=== PATIENT | female | born 1965 | race Caucasian/White ===

== ENCOUNTER → 2017-12-07 | Outpatient (CLI) | payer OTHER ==
--- NOTE | 2017-12-07 13:53 | US ---
EXAMINATION TYPE: US abdomen complete DATE OF EXAM: 12/07/2017 COMPARISON: Complete abdominal ultrasound December 04, 2014. CT abdomen and pelvis November 08, 2011 CLINICAL HISTORY: R10.9 ABD PAIN. chronic pancreatitis and liver inflammation per patient, on steroid s EXAM MEASUREMENTS: Liver Length: 15.4 cm Gallbladder Wall: Surgically absent CBD: 0.7 cm Spleen: 9.3 cm Right Kidney: 10.0 x 5.0 x 3.9 cm Left Kidney: 10.1 x 4.4 x 5.2 cm Pancreas: wnl Liver: wnl Gallbladder: Surgically absent Evidence for sonographic Griffith's sign: no CBD: wnl Spleen: wnl Right Kidney: wnl Left Kidney: wnl Upper IVC: wnl Abd Aorta: wnl The visualized liver is homogenous. The intrahepatic portion of the IVC and proximal abdominal aorta are within normal limits. Gallbladder is surgically absent. Common bile duct is unremarkable. The visualized portions of the pancreas are homogenous. The spleen is unremarkable. Kidneys are symmetr ic and free of hydronephrosis. No renal lesions are seen. IMPRESSION: No suspicious finding identified. No significant change from prior ultrasound.
== END | disposition home or self-care (01) ==
LOC: RADUSWWP 13:13
PROVIDERS: ATTEND Family Medicine
DX: R10.9 Unspecified abdominal pain (principal); F41.9 Anxiety disorder, unspecified
CPT/HCPCS: 76700

== ENCOUNTER → 2019-03-13 | Outpatient (CLI) | payer OTHER ==
[2019-03-13 17:58] LABS: Basophils # (A) 0.1 k/uL (0-0.2); Basophils % (A) 1 %; Eosinophils # (A) 0.3 k/uL (0-0.7); Eosinophils % (A) 4 %; HCT 42.7 % (34.0-46.0); HGB 13.5 gm/dL (11.4-16.0); Lymphocytes # (A) 2.2 k/uL (1.0-4.8); Lymphocytes % (A) 29 %; MCH 29.8 pg (25.0-35.0); MCHC 31.6 g/dL (31.0-37.0); MCV 94.4 fL (80.0-100.0); Mean Platelet Volume 7.1; Monocytes # (A) 0.6 k/uL (0-1.0); Monocytes % (A) 8 %; Neutrophils # (A) 4.3 k/uL (1.3-7.7); Neutrophils % (A) 57 %; Platelet Count 345 k/uL (150-450); RBC 4.53 m/uL (3.80-5.40); RDW 14.8 % (11.5-15.5); WBC 7.5 k/uL (3.8-10.6)
[2019-03-13 18:01] LABS: INR 1.1 (<1.2); Prothrombin Time 11.2 sec (9.0-12.0)
[2019-03-13 23:38] LABS: African American GFR (CKD) 85.8 (60.0-200.0); Albumin 4.2 g/dL (3.80-4.90); Albumin/Globulin Ratio 2.1 (1.60-3.17); BUN/Creat Ratio 17.78 Ratio (12.00-20.00); Calcium 9.5 mg/dL (8.7-10.3); Potassium 4.7 mmol/L (3.5-5.5); Total Bilirubin 0.4 mg/dL (0.3-1.2); Total Protein 6.2 g/dL (6.2-8.2)
[2019-03-14 14:18] LABS: IgG Subclass 3 21.7 mg/dL (11.0-85.0); IgG Subclass 4 26.3 mg/dL (3.0-175.0)
[2019-03-14 14:24] LABS: Liver/Kidney Microsome Antibod 1.4 UNITS (<=20)
== END | disposition home or self-care (01) ==
LOC: LABWHC1 17:27
PROVIDERS: ATTEND Internal Medicine
DX: K75.4 Autoimmune hepatitis (principal); K85.80 Other acute pancreatitis without necrosis or infection
CPT/HCPCS: 36415; 80053; 82787; 83516; 85025; 85610; 86038; 86376

== ENCOUNTER 2020-01-16 16:31 | Inpatient (IN) | payer OTHER ==
[2020-01-16] MEDS ORDERED: MORPHINE SULFATE 4 MG/ML SYRINGE IV STA (16:50)
[2020-01-16] MEDS ORDERED: ASPIRIN 81 MG PO STA (16:50)
[2020-01-16] MEDS ORDERED: SODIUM CHLORIDE 0.9% 1,000 ML IV STA (16:50)
[2020-01-16] MEDS ORDERED: ONDANSETRON 4 MG/2 ML VIAL IVP STA (17:05)
[2020-01-16 17:23] LABS: Basophils % (A) 0 %; Eosinophils # (A) 0.3 k/uL (0-0.7); Eosinophils % (A) 2 %; HCT 45.1 % (34.0-46.0); HGB 14.5 gm/dL (11.4-16.0); Lymphocytes # (A) 0.9 k/uL (1.0-4.8); Lymphocytes % (A) 4 %; MCH 30.2 pg (25.0-35.0); MCHC 32.2 g/dL (31.0-37.0); MCV 93.8 fL (80.0-100.0); Mean Platelet Volume 7.6; Monocytes # (A) 0.5 k/uL (0-1.0); Monocytes % (A) 3 %; Neutrophils # (A) 19.7 k/uL (1.3-7.7); Neutrophils % (A) 91 %; Platelet Count 351 k/uL (150-450); RDW 13.3 % (11.5-15.5); WBC 21.6 k/uL (3.8-10.6)
--- NOTE | 2020-01-16 17:27 | ED ---
General Adult HPI - General Chief complaint: Nausea/Vomiting/Diarrhea Stated complaint: vomiting, weak Time Seen by Provider: 01/16/20 16:40 Source: patient, RN notes reviewed, old records reviewed Mode of arrival: ambulatory Limitations: no limitations - History of Present Illness Initial comments: 54-year-old female patient with extensive past medical history including COPD, reported prior IL, cholecystectomy hysterectomy chronic abdominal pain presents to ED for evaluation of abdominal pain which is diffuse and has been ongoing for the last week. She reports also been having nausea and vomiting. Patient does also report 2 days of left parasternal chest pain. Denies any shortness of breath. Denies chest pain at this time. Systemic: Pt denies fatigue, fever/chills, rash. Pt denies weakness, night sweats, weight loss. Neuro: Pt denies headache, visual disturbances, syncope or pre-syncope. HEENT: Pt denies ocular discharge or irritation, otalgia, rhinorrhea, pharyngitis or notable lymphadenopathy. Cardiopulmonary: Pt denies SOB, heart palpitations, dyspnea on exertion. : Pt denies dysuria, burning w/ urination, frequency/urgency. Denies new onset urinary or bowel incontinence. MSK: Pt denies myalgia, loss of strength or function in extremities. Neuro: Pt denies new onset weakness, paresthesias. - Related Data Home Medications Medication Instructions Recorded Confirmed Aspirin [Adult Low Dose Aspirin EC] 81 mg PO DAILY 08/24/15 04/12/18 Celecoxib [CeleBREX] 200 mg PO BID 08/24/15 04/12/18 Esomeprazole Magnesium [NexIUM] 40 mg PO BID 08/24/15 04/12/18 Lipase/Protease/Amylase [Pancreaze 42,000 unit PO QID 08/24/15 04/12/18 ] Loratadine [Claritin] 10 mg PO DAILY 08/24/15 04/12/18 Ranitidine HCl [Zantac] 150 mg PO HS 08/24/15 04/12/18 Metoclopramide HCl [Reglan] 5 mg PO QID PRN 04/12/18 04/12/18 guaiFENesin 400 mg PO DAILY 04/12/18 04/12/18 predniSONE 5 mg PO DAILY 04/12/18 04/12/18 Allergies Allergy/AdvReac Type Severity Reaction Status Date / Time formaldehyde Allergy Rash/Hives Verified 01/16/20 16:39 latex Allergy Rash/Hives Verified 01/16/20 16:39 nickel Allergy Rash/Hives Verified 01/16/20 16:39 Penicillins Allergy Rash/Hives Verified 01/16/20 16:39 povidone-iodine Allergy Rash/Hives Verified 01/16/20 16:39 [From Betadine] soap [From Betadine] Allergy Rash/Hives Verified 01/16/20 16:39 Sulfa (Sulfonamide Allergy Anaphylaxis Verified 01/16/20 16:39 Antibiotics) Review of Systems ROS Statement: Those systems with pertinent positive or pertinent negative responses have been documented in the HPI. ROS Other: All systems not noted in ROS Statement are negative. Past Medical History Past Medical History: Asthma, COPD, Deep Vein Thrombosis (DVT), GERD/Reflux, GI Bleed, Memory Impairment, Myocardial Infarction ([place]), Osteoarthritis (OA), Rheumatoid Arthritis (RA) Additional Past Medical History / Comment(s): lupus,scleroderma, hypoglycemia,ulcers,chronic autoimmune hepatitis and pancreatits(ON PANCREATIC DIET AT HOME),delayed gastric emptying,diverticulitis,hiatal hernia, abd hernia,factor 12 deficiency,raynauls dz, pt stated "has had 8 mi's", endometreosis,"irreg heat beat", ddd, scoliosis. Last Myocardial Infarction Date:: UNK History of Any Multi-Drug Resistant Organisms: None Reported Past Surgical History: Cholecystectomy, Hysterectomy, Orthopedic Surgery Additional Past Surgical History / Comment(s): 2 rt arthroscopic sx to clean knee up, total rt knee replacement, plate in neck, lt knee arthroscopy and cleaned out, nose sx(rhinoplasty), laparoscopy- adhesions/scar tissue removed Past Anesthesia/Blood Transfusion Reactions: No Reported Reaction Additional Past Anesthesia/Blood Transfusion Reaction / Comment(s): PT THINKS SHE MAY HAVE HAD A BLOOD TRANSFUSION IN PAST Past Psychological History: No Psychological Hx Reported Smoking Status: Never smoker Past Alcohol Use History: None Reported Past Drug Use History: Marijuana - Past Family History Mother Additional Family Medical History / Comment(s): HEART PROBLEMS Father Family Medical History: Coronary Artery Disease (CAD), Diabetes Mellitus, Renal Disease Additional Family Medical History / Comment(s): LUPUS, HEART PROBLEMS General Exam - General Exam Comments Initial Comments: Constitutional: NAD, AOX3, Pt has pleasant affect. HEENT: NC/AT, trachea midline, neck supple, no lymphadenopathy. Posterior pharynx non erythematous, without exudates. External ears appear normal, without discharge. Mucous membranes moist. Eyes PERRLA, EOM intact. There is no scleral icterus. No pallor noted. Cardiopulmonary: RRR, no murmurs, rubs or gallops, no JVD noted. Lungs CTAB in anterior and posterior merritt. No peripheral edema. Abdominal exam: Abdomen soft and non-distended. Generalized tenderness to palpa tion in abdomen. No hepatosplenomegaly. No ecchymosis Neuro: CN II-XII grossly intact. No nuchal rigidity. No raccon eyes, no greer sign, no hemotympanum. No cervical spinal tenderness. MSK: No posterior calf tenderness bilaterally, homans sign negative bilaterally. Posterior tibialis and radial pulse +2 bilaterally. Sensation intact in upper and lower extremities. Full active ROM in upper and lower extremities, 5/5 stregnth. Limitations: no limitations Course Vital Signs 01/16/20 01/16/20 01/16/20 16:35 17:19 19:32 Temperature 98.2 F 98.8 F Pulse Rate 57 L 50 L 63 Respiratory 18 18 18 Rate Blood Pressure 162/76 148/78 117/68 O2 Sat by Pulse 98 99 99 Oximetry Medical Decision Making - Medical Decision Making 54-year-old female patient with extensive past medical history including COPD, reported prior [place], cholecystectomy hysterectomy chronic abdominal pain presents to ED for evaluation of abdominal pain which is diffuse and has been ongoing for the last week. She reports also been having nausea and vomiting. Patient does also report 2 days of left parasternal chest pain. Denies any shortness of breath. Denies chest pain at this time. Patient will signs are stable, afebrile. Physical exam didn't display generalized abdominal tenderness, nonlocalized. Laboratory investigations were obtained leukocytosis of 21.6. D- dimer negative. Troponin negative. CT abdomen and pelvis was obtained. This did not display any suspicious acute changes. Patient tenderness is mainly in the upper quadrants. Chest x-ray did not reveal any acute cardiopulmonary process. Patient's symptoms are well controlled. She'll be admitted for serial troponins and further evaluation. Case discussed with Dr. Joyce. - Lab Data Result diagrams: 01/16/20 17:14 01/16/20 17:14 Lab Results 01/16/20 01/16/20 01/16/20 Range/Units 17:14 17:14 17:14 WBC 21.6 H (3.8-10.6) k/uL RBC 4.80 (3.80-5.40) m/uL Hgb 14.5 (11.4-16.0) gm/dL Hct 45.1 (34.0-46.0) % MCV 93.8 (80.0-100.0) fL MCH 30.2 (25.0-35.0) pg MCHC 32.2 (31.0-37.0) g/dL RDW 13.3 (11.5-15.5) % Plt Count 351 (150-450) k/uL Neutrophils % 91 % Lymphocytes % 4 % Monocytes % 3 % Eosinophils % 2 % Basophils % 0 % Neutrophils # 19.7 H (1.3-7.7) k/uL Lymphocytes # 0.9 L (1.0-4.8) k/uL Monocytes # 0.5 (0-1.0) k/uL Eosinophils # 0.3 (0-0.7) k/uL Basophils # 0.0 (0-0.2) k/uL PT 10.7 (9.0-12.0) sec INR 1.0 (<1.2) APTT 25.1 (22.0-30.0) sec D-Dimer 0.30 (<0.60) mg/L FEU Sodium 139 (137-145) mmol/L Potassium 5.3 H (3.5-5.1) mmol/L Chloride 108 H (98-107) mmol/L Carbon Dioxide 21 L (22-30) mmol/L Anion Gap 10 mmol/L BUN 17 (7-17) mg/dL Creatinine 0.55 (0.52-1.04) mg/dL Est GFR (CKD-EPI)AfAm >90 (>60 ml/min/1.73 sqM) Est GFR (CKD-EPI)NonAf >90 (>60 ml/min/1.73 sqM) Glucose 149 H (74-99) mg/dL Calcium 9.7 (8.4-10.2) mg/dL Magnesium 1.4 L (1.6-2.3) mg/dL Total Bilirubin 0.8 (0.2-1.3) mg/dL AST 51 H (14-36) U/L ALT 42 H (4-34) U/L Alkaline Phosphatase 71 (38-126) U/L Troponin I (0.000-0.034) ng/mL Total Protein 7.6 (6.3-8.2) g/dL Albumin 4.6 (3.5-5.0) g/dL 01/16/20 Range/Units 17:14 WBC (3.8-10.6) k/uL RBC (3.80-5.40) m/uL Hgb (11.4-16.0) gm/dL Hct (34.0-46.0) % MCV (80.0-100.0) fL MCH (25.0-35.0) pg MCHC (31.0-37.0) g/dL RDW (11.5-15.5) % Plt Count (150-450) k/uL Neutrophils % % Lymphocytes % % Monocytes % % Eosinophils % % Basophils % % Neutrophils # (1.3-7.7) k/uL Lymphocytes # (1.0-4.8) k/uL Monocytes # (0-1.0) k/uL Eosinophils # (0-0.7) k/uL Basophils # (0-0.2) k/uL PT (9.0-12.0) sec INR (<1.2) APTT (22.0-30.0) sec D-Dimer (<0.60) mg/L FEU Sodium (137-145) mmol/L Potassium (3.5-5.1) mmol/L Chloride (98-107) mmol/L Carbon Dioxide (22-30) mmol/L Anion Gap mmol/L BUN (7-17) mg/dL Creatinine (0.52-1.04) mg/dL Est GFR (CKD-EPI)AfAm (>60 ml/min/1.73 sqM) Est GFR (CKD-EPI)NonAf (>60 ml/min/1.73 sqM) Glucose (74-99) mg/dL Calcium (8.4-10.2) mg/dL Magnesium (1.6-2.3) mg/dL Total Bilirubin (0.2-1.3) mg/dL AST (14-36) U/L ALT (4-34) U/L Alkaline Phosphatase (38-126) U/L Troponin I <0.012 (0.000-0.034) ng/mL Total Protein (6.3-8.2) g/dL Albumin (3.5-5.0) g/dL - EKG Data -: EKG Interpreted by Me (and Dr. Joyce ) EKG Comments: Ventricular rate 48, when necessary for 136, QRS 90, QT/QTc 476/425. Sinus bradycardia, otherwise normal EKG. No concern for acute ischemia. Disposition Clinical Impression: Abdominal pain, Chest pain Disposition: ADMITTED IP TO THIS HOSP Condition: Serious Is patient prescribed a controlled substance at d/c from ED?: No Referrals: Chaim Johnson DO [Primary Care Provider] - 1-2 days
[2020-01-16 17:32] LABS: ALT 42 U/L (4-34); AST 51 U/L (14-36); African American GFR (CKD) >90 (>60 ml/min/1.73 sqM); Albumin 4.6 g/dL (3.5-5.0); Alkaline Phosphatase 71 U/L (38-126); Anion Gap 10 mmol/L; Blood Urea Nitrogen 17 mg/dL (7-17); Calcium 9.7 mg/dL (8.4-10.2); Carbon Dioxide 21 mmol/L (22-30); Chloride 108 mmol/L (98-107); Glucose 149 mg/dL (74-99); Magnesium 1.4 mg/dL (1.6-2.3); Non-African American GFR(CKD) >90 (>60 ml/min/1.73 sqM); Potassium 5.3 mmol/L (3.5-5.1); Sodium 139 mmol/L (137-145); Total Bilirubin 0.8 mg/dL (0.2-1.3); Total Protein 7.6 g/dL (6.3-8.2)
[2020-01-16 17:49] LABS: D-Dimer 0.3 mg/L FEU (<0.60); Partial Thromboplastin Time 25.1 sec (22.0-30.0); Prothrombin Time 10.7 sec (9.0-12.0)
[2020-01-16] MEDS ORDERED: methylPREDNISolone SOD SUCCI 125 MG/2 ML VIAL IV STA (17:59)
[2020-01-16] MEDS ORDERED: FAMOTIDINE 20 MG/2 ML VIAL IV STA (17:59)
[2020-01-16] MEDS ORDERED: diphenhydrAMINE 50 MG/ML 1 ML VIAL IVP STA (17:59)
--- NOTE | 2020-01-16 18:09 | XR ---
EXAMINATION TYPE: XR chest 2V DATE OF EXAM: 01/16/2020 COMPARISON: 11/08/2011 INDICATION: Chest pain TECHNIQUE: Frontal and lateral views of the chest are obtained. FINDINGS: The heart size is normal. The pulmonary vasculature is normal. The lungs are clear. IMPRESSION: 1. No acute pulmonary process.
[2020-01-16] MEDS: HYDROmorphone 1 MG/ML 1 ML SYRINGE IVP STA ×2 (18:17→18:32)
[2020-01-16] MEDS ORDERED: HYDROmorphone 1 MG/ML 1 ML SYRINGE IVP STA (18:27)
--- NOTE | 2020-01-16 19:18 | CT ---
EXAMINATION TYPE: CT abdomen pelvis w con DATE OF EXAM: 01/16/2020 COMPARISON: 04/12/2018 INDICATION: Generalized pain with weakness and bowel changes DLP: 648.3 mGycm, Automated exposure control for dose reduction was used. CONTRAST: 100 mL of Isovue 300. Study performed without Oral Contrast TECHNIQUE: Axial images were obtained from above the diaphragm to the pubic rami in the axial plane a t 5 mm thick sections. Reconstructed images are reviewed on the computer in the coronal plane. FINDINGS: Limited CT sections are obtained the lung bases. The lung bases are clear. CT ABDOMEN: Liver: Normal Spleen: Normal Pancreas: Normal Adrenal glands: The adrenal glands are normal. Gallbladder: Surgically absent Kidneys: No masses are evident. No hydronephrosis is present. No cysts are present. Delayed images were obtained through the kidneys, which remain unremarkable. Aorta: Vascular calcification is within the aorta. Inferior vena cava: Normal. CT PELVIS: Loops of bowel within the abdomen and pelvis are normal. Study is without oral contrast limiting bowel evaluation. Appendix: Normal as visualized. There is some fluid-filled loops of ileum in the right lower quadrant which may separation from the appendix difficult. Clinical management of any suspected appendicitis will be recommended. Correlate with the patient's surgical history. Urinary bladder: Normal. Genitourinary structures: Uterus and ovaries are not identified. No free fluid is within the pelvis. Osseous structures: No suspicious lytic or sclerotic lesions. IMPRESSIONS: 1. No suspicious acute changes identified. 2. Difficulty identifying the appendix. Clinical management of any suspected appendicitis will be req uired.
[2020-01-16 20:10] LABS: Appearance,Urine Clear (Clear); Bilirubin,Urine Negative (Negative); Blood,Urine Negative (Negative); Color,Urine Yellow; Glucose,Urine (UA) Negative (Negative); Ketones,Urine 3+ (Negative); Leukocyte Esterase,Urine Negative (Negative); Nitrite,Urine Negative (Negative); Protein,Urine Trace (Negative); Urobilinogen,Urine <2.0 mg/dL (<2.0)
[2020-01-16] MEDS ORDERED: NITROGLYCERIN SL TABS 0.4 MG TAB SUBLINGUAL PRN (20:15)
[2020-01-16] MEDS ORDERED: MAGNESIUM SULFATE-D5W PMX 1 GM in DEXTROSE/WATER 1 100ML.BAG IVPB ONE ×3 (20:29→20:56)
[2020-01-16 20:31] LABS: Specific Gravity,Urine >1.050 (1.001-1.035)
[2020-01-16] MEDS ORDERED: MAGNESIUM OXIDE 400 MG TAB PO STA (20:34)
[2020-01-16] MEDS: MORPHINE SULFATE 4 MG/ML SYRINGE IV PRN (22:06)
[2020-01-16] MEDS ORDERED: TAPENTADOL HCL 100 MG PO PRN (22:22)
[2020-01-16] MEDS ORDERED: ACETAMINOPHEN TAB 325 MG TAB PO PRN (22:26)
[2020-01-16] MEDS: SODIUM CHLORIDE 0.9% 1,000 ML IV SCH (23:14)
[2020-01-16] MEDS: PANTOPRAZOLE 40 MG TABLET PO SCH (23:14)
[2020-01-17] MEDS: MORPHINE SULFATE 4 MG/ML SYRINGE IV PRN ×4 (04:35→22:57)
[2020-01-17] MEDS: ONDANSETRON 4 MG/2 ML VIAL IVP PRN ×2 (05:31→11:28)
[2020-01-17 06:00] LABS: Glucose,Whole Blood 132 mg/dL (75-99)
[2020-01-17 06:25] LABS: Amylase 64 U/L (30-110)
[2020-01-17 06:26] LABS: Magnesium 1.8 mg/dL (1.6-2.3)
[2020-01-17] MEDS: SODIUM CHLORIDE 0.9% 1,000 ML IV SCH ×3 (06:26→21:30)
--- NOTE | 2020-01-17 08:08 | P.CRDCN ---
History of Present Illness History of present illness: This is Dr. Park dictating a consult on this patient The patient was interviewed and examined IMPRESSION / ASSESSMENT: PLAN: HPI 54-year-old female presents for diffuse abdominal pain with nausea vomiting Also complains of left sided chest pain ROS: No fever chills or rigors, no cough, phlegm or expectoration, no nausea, vomiting or diarrhea, no hematuria, dysuria, no musculoskeletal complaints, no strokes or seizures, no skin lesions. EXAMINATION: REVIEW OF LABS, ECG & MEDICAL DATA Past history of COPD DVT GI bleeding due to her arthritis Chest x-ray normal CT of the abdomen, unable to identify appendix no other suspicious acute changes Past Medical History Past Medical History: Asthma, COPD, Deep Vein Thrombosis (DVT), GERD/Reflux, GI Bleed, Memory Impairment, Myocardial Infarction ([place]), Osteoarthritis (OA), Rheumatoid Arthritis (RA) Additional Past Medical History / Comment(s): lupus,scleroderma, hypoglycemia,ulcers,chronic autoimmune hepatitis and pancreatits(ON PANCREATIC DIET AT HOME),delayed gastric emptying,diverticulitis,hiatal hernia, abd hernia,factor 12 deficiency,raynauls dz, pt stated "has had 8 mi's", endometreosis,"irreg heat beat", ddd, scoliosis. Last Myocardial Infarction Date:: UNK History of Any Multi-Drug Resistant Organisms: None Reported Past Surgical History: Cholecystectomy, Hysterectomy, Orthopedic Surgery Additional Past Surgical History / Comment(s): 2 rt arthroscopic sx to clean knee up, total rt knee replacement, plate in neck, lt knee arthroscopy and cleaned out, nose sx(rhinoplasty), laparoscopy- adhesions/scar tissue removed Past Anesthesia/Blood Transfusion Reactions: No Reported Reaction Additional Past Anesthesia/Blood Transfusion Reaction / Comment(s): PT THINKS SHE MAY HAVE HAD A BLOOD TRANSFUSION IN PAST Past Psychological History: No Psychological Hx Reported Smoking Status: Never smoker Past Alcohol Use History: None Reported Past Drug Use History: Marijuana Additional Drug Use History / Comment(s): MEDICAL MARIJUANA - Past Family History Mother Additional Family Medical History / Comment(s): HEART PROBLEMS Father Family Medical History: Coronary Artery Disease (CAD), Diabetes Mellitus, Renal Disease Additional Family Medical History / Comment(s): LUPUS, HEART PROBLEMS Medications and Allergies Home Medications Medication Instructions Recorded Confirmed Type Celecoxib [CeleBREX] 200 mg PO BID 08/24/15 01/16/20 History Esomeprazole Magnesium [NexIUM] 40 mg PO HS 08/24/15 01/16/20 History Lipase/Protease/Amylase [Pancreaze 42,000 unit PO QID 08/24/15 01/16/[address]] Loratadine [Claritin] 10 mg PO DAILY 08/24/15 01/16/20 History guaiFENesin 400 mg PO DAILY 04/12/18 01/16/20 History Albuterol Sulfate [Proair Hfa] 2 puff INHALATION RT-Q4H PRN 01/16/20 01/16/20 History Fluticasone/Salmeterol [Advair 2 puff INHALATION RT-BID 01/16/20 01/16/20 History 250-50 Diskus] Ondansetron [Zofran] 4 mg PO DAILY PRN 01/16/20 01/16/20 History Polyethylene Glycol 3350 [Miralax] 17 gm PO BID PRN 01/16/20 01/16/20 History Tapentadol HCl [Nucynta] 100 mg PO Q6HR PRN 01/16/20 01/16/20 History Tiotropium Gilbert [Spiriva 1 puff INHALATION RT-BID 01/16/20 01/16/20 History Respimat] Allergies Allergy/AdvReac Type Severity Reaction Status Date / Time formaldehyde Allergy Rash/Hives Verified 01/16/20 22:26 latex Allergy Rash/Hives Verified 01/16/20 22:26 nickel Allergy Rash/Hives Verified 01/16/20 22:26 Penicillins Allergy Rash/Hives Verified 01/16/20 22:26 povidone-iodine Allergy Rash/Hives Verified 01/16/20 22:26 [From Betadine] soap [From Betadine] Allergy Rash/Hives Verified 01/16/20 22:26 Sulfa (Sulfonamide Allergy Anaphylaxis Verified 01/16/20 22:26 Antibiotics) Physical Exam Vitals: Vital Signs Temp Pulse Pulse Resp BP BP Pulse Ox 01/17/20 04:00 99.1 F 69 17 120/66 98 01/17/20 00:00 98.8 F 70 17 114/56 97 01/16/20 21:40 99.8 F H 92 18 128/58 96 01/16/20 21:15 92 01/16/20 21:00 98.1 F 60 20 123/70 99 01/16/20 19:32 98.8 F 63 18 117/68 99 01/16/20 17:19 50 L 18 148/78 99 01/16/20 16:35 98.2 F 57 L 18 162/76 98 Intake and Output 01/16/20 01/17/20 01/17/20 22:59 06:59 14:59 Intake Total 1000 Balance 1000 Intake: Intake, IV Titration 1000 Amount Sodium Chloride 0.9% 1, 1000 000 ml @ 125 mls/hr IV . Q8H [facility] [place] Rx#:[id number] Other: # Voids 1 Weight 58.967 kg 62.2 kg Results 01/16/20 17:14 01/16/20 17:14 Cardiac Enzymes 01/16/20 01/16/20 01/16/20 Range/Units 17:14 17:14 23:05 AST 51 H (14-36) U/L Troponin I <0.012 <0.012 (0.000-0.034) ng/mL 01/17/20 Range/Units 05:41 AST (14-36) U/L Troponin I <0.012 (0.000-0.034) ng/mL Coagulation 01/16/20 Range/Units 17:14 PT 10.7 (9.0-12.0) sec APTT 25.1 (22.0-30.0) sec Lipids 01/17/20 Range/Units 05:41 Triglycerides 79 (<150) mg/dL Cholesterol 166 (<200) mg/dL HDL Cholesterol 64 H (40-60) mg/dL CBC 01/16/20 Range/Units 17:14 WBC 21.6 H (3.8-10.6) k/uL RBC 4.80 (3.80-5.40) m/uL Hgb 14.5 (11.4-16.0) gm/dL Hct 45.1 (34.0-46.0) % Plt Count 351 (150-450) k/uL Comprehensive Metabolic Panel 01/16/20 Range/Units 17:14 Sodium 139 (137-145) mmol/L Potassium 5.3 H (3.5-5.1) mmol/L Chloride 108 H (98-107) mmol/L Carbon Dioxide 21 L (22-30) mmol/L BUN 17 (7-17) mg/dL Creatinine 0.55 (0.52-1.04) mg/dL Glucose 149 H (74-99) mg/dL Calcium 9.7 (8.4-10.2) mg/dL AST 51 H (14-36) U/L ALT 42 H (4-34) U/L Alkaline Phosphatase 71 (38-126) U/L Total Protein 7.6 (6.3-8.2) g/dL Albumin 4.6 (3.5-5.0) g/dL Current Medications Generic Name Dose Route Start Last Admin Trade Name Freq PRN Reason Stop Dose Admin Acetaminophen 650 mg 01/16/20 22:26 Tylenol Tab PO Q6HR PRN Fever and/ or Pain Aspirin 325 mg 01/17/20 09:00 Aspirin PO DAILY [facility] [place] Guaifenesin 400 mg 01/17/20 09:00 Robitussin PO DAILY [facility] [place] Sodium Chloride 1,000 mls @ 125 mls/hr 01/16/20 22:30 01/17/20 06:26 Saline 0.9% IV 125 mls/hr .Q8H [facility]IXON Administration Loratadine 10 mg 01/17/20 09:00 Claritin PO DAILY [facility] [place] Meloxicam 15 mg 01/17/20 09:00 Mobic PO DAILY [facility] [place] Morphine Sulfate 4 mg 01/16/20 20:15 01/17/20 04:35 Morphine Sulfate (Inj) IV 4 mg Q6HR PRN Administration Pain Nitroglycerin 0.4 mg 01/16/20 20:15 Nitrostat SUBLINGUAL Q5M PRN Chest Pain Lipase/Protease/ 42,000 unit 01/17/20 09:00 Amylase [Pancreaze PO Dr] 42,000 Unit QID [facility] [place] Tapentadol Hcl [ 100 mg 01/16/20 22:22 Nucynta] 100 Mg PO Q6HR PRN Breakthrough Pain Ondansetron HCl 4 mg 01/16/20 22:27 01/17/20 05:31 Zofran IVP 4 mg Q6HR PRN Administration Nausea And Vomiting Pantoprazole Sodium 40 mg 01/16/20 22:30 01/16/20 23:14 Protonix PO 40 mg HS NIXON Administration Intake and Output 01/16/20 01/17/20 01/17/20 22:59 06:59 14:59 Intake Total 1000 Balance 1000 Intake: Intake, IV Titration 1000 Amount Sodium Chloride 0.9% 1, 1000 000 ml @ 125 mls/hr IV . Q8H [facility] [place] Rx#:[id number] Other: # Voids 1 Weight 58.967 kg 62.2 kg 01/16/20 17:14 01/16/20 17:14
[2020-01-17] MEDS: LORATADINE 10 MG TAB PO SCH (08:24)
[2020-01-17] MEDS: MELOXICAM 7.5 MG TAB PO SCH (08:24)
[2020-01-17] MEDS: guaiFENesin SYRUP 100MG/5ML 200 MG/10 ML CUP PO SCH (08:26)
[2020-01-17] MEDS: AMYLASE PO SCH ×4 (08:36→21:30)
[2020-01-17] MEDS: LIPASE PO SCH ×4 (08:36→21:30)
[2020-01-17] MEDS: PROTEASE PO SCH ×4 (08:36→21:30)
--- NOTE | 2020-01-17 08:41 | US ---
EXAMINATION TYPE: US abdomen complete DATE OF EXAM: 01/17/2020 COMPARISON: Previous study dated 12/07/2017. CLINICAL HISTORY: abdominal pain . nausea and vomiting. EXAM MEASUREMENTS: Liver Length: 17 cm Gallbladder Wall: Surgically absent cm CBD: .7 cm Spleen: 8.4 cm Right Kidney: 10.4 x 3.7 x 3.7 cm Left Kidney: 9.5 x 5.7 x 4.6 cm Pancreas: wnl Liver: wnl Gallbladder: Surgically absent Evidence for sonographic Griffith's sign: No CBD: wnl Spleen: wnl Right Kidney: wnl Left Kidney: wnl Upper IVC: wnl Abd Aorta: wnl The pancreas is unremarkable. The liver is normal in size without biliary dilatation. The gallbladder is been removed. The distal common hepatic duct measures 7 mm. There is no sonographi c Griffith's sign. The spleen is normal size. Both kidneys are unremarkable. Limited views of the aorta and IVC are unremarkable. IMPRESSION: STATUS POST CHOLECYSTECTOMY.
[2020-01-17] MEDS ORDERED: ASPIRIN 325 MG TAB PO SCH (09:00)
--- NOTE | 2020-01-17 09:57 | P.CRDCN ---
History of Present Illness History of present illness: This is Dr. Park dictating a consult on this patient, Shivani Cuevas The patient was interviewed and examined IMPRESSION / ASSESSMENT: Patient presenting with abdominal pain, elevated white count, nausea vomiting Left-sided chest discomfort with normal d-dimer normal cardiac enzymes [address] segment abnormalities and ECG heart rate in the 40s Not on any AV node blocking drugs PLAN: 2-D echo and Doppler study Continue monitoring on telemetry TSH HPI Patient presents with diffuse abdominal pain ongoing for the last one week Nausea vomiting Left-sided chest discomfort 3 normal cardiac enzymes Normal d-dimer Past history of asthma DVT [place] ruled arthritis White count 21,000 elevated neutrophil count Hyperkalemia 5.3 BUN 17 creatinine 0.55 She was nauseous and vomiting ROS: No fever chills or rigors, no cough, phlegm or expectoration, no nausea, vomiting or diarrhea, no hematuria, dysuria, no musculoskeletal complaints, no strokes or seizures, no skin lesions. EXAMINATION: 98.8F pulse rate in the 40s as low as 30 beats a minute Blood pressure 144/72 mmHg Soft systolic murmur Breath sounds are clear Abdomen is tender to palpitation No edema REVIEW OF LABS, ECG & MEDICAL DATA CT of the abdomen did not show any acute changes Appendix was not clearly identified Twelve-lead ECG shows heart rate 48 beats a minute normal ST segments White count 21,000, hemoglobin 14.5 Sodium 139 potassium 5.3 BUN 17 creatinine 0.553 normal troponins Past Medical History Past Medical History: Asthma, COPD, Deep Vein Thrombosis (DVT), GERD/Reflux, GI Bleed, Memory Impairment, Myocardial Infarction ([place]), Osteoarthritis (OA), Rheumatoid Arthritis (RA) Additional Past Medical History / Comment(s): lupus,scleroderma, hypoglycemia,ulcers,chronic autoimmune hepatitis and pancreatits(ON PANCREATIC DIET AT HOME),delayed gastric emptying,diverticulitis,hiatal hernia, abd hernia,factor 12 deficiency,raynauls dz, pt stated "has had 8 mi's", endometreosis,"irreg heat beat", ddd, scoliosis. Last Myocardial Infarction Date:: UNK History of Any Multi-Drug Resistant Organisms: None Reported Past Surgical History: Cholecystectomy, Hysterectomy, Orthopedic Surgery Additional Past Surgical History / Comment(s): 2 rt arthroscopic sx to clean knee up, total rt knee replacement, plate in neck, lt knee arthroscopy and cleaned out, nose sx(rhinoplasty), laparoscopy- adhesions/scar tissue removed Past Anesthesia/Blood Transfusion Reactions: No Reported Reaction Additional Past Anesthesia/Blood Transfusion Reaction / Comment(s): PT THINKS SHE MAY HAVE HAD A BLOOD TRANSFUSION IN PAST Past Psychological History: No Psychological Hx Reported Smoking Status: Never smoker Past Alcohol Use History: None Reported Past Drug Use History: Marijuana Additional Drug Use History / Comment(s): MEDICAL MARIJUANA - Past Family History Mother Additional Family Medical History / Comment(s): HEART PROBLEMS Father Family Medical History: Coronary Artery Disease (CAD), Diabetes Mellitus, Renal Disease Additional Family Medical History / Comment(s): LUPUS, HEART PROBLEMS Medications and Allergies Home Medications Medication Instructions Recorded Confirmed Type Celecoxib [CeleBREX] 200 mg PO BID 08/24/15 01/16/20 History Esomeprazole Magnesium [NexIUM] 40 mg PO HS 08/24/15 01/16/20 History Lipase/Protease/Amylase [Pancreaze 42,000 unit PO QID 08/24/15 01/16/[address]] Loratadine [Claritin] 10 mg PO DAILY 08/24/15 01/16/20 History guaiFENesin 400 mg PO DAILY 04/12/18 01/16/20 History Albuterol Sulfate [Proair Hfa] 2 puff INHALATION RT-Q4H PRN 01/16/20 01/16/20 History Fluticasone/Salmeterol [Advair 2 puff INHALATION RT-BID 01/16/20 01/16/20 History 250-50 Diskus] Ondansetron [Zofran] 4 mg PO DAILY PRN 01/16/20 01/16/20 History Polyethylene Glycol 3350 [Miralax] 17 gm PO BID PRN 01/16/20 01/16/20 History Tapentadol HCl [Nucynta] 100 mg PO Q6HR PRN 01/16/20 01/16/20 History Tiotropium [place] [Spiriva 1 puff INHALATION RT-BID 01/16/20 01/16/20 History Respimat] Allergies Allergy/AdvReac Type Severity Reaction Status Date / Time formaldehyde Allergy Rash/Hives Verified 01/16/20 22:26 latex Allergy Rash/Hives Verified 01/16/20 22:26 nickel Allergy Rash/Hives Verified 06/05/20 22:26 Penicillins Allergy Rash/Hives Verified 01/16/20 22:26 povidone-iodine Allergy Rash/Hives Verified 01/16/20 22:26 [From Betadine] soap [From Betadine] Allergy Rash/Hives Verified 01/16/20 22:26 Sulfa (Sulfonamide Allergy Anaphylaxis Verified 01/16/20 22:26 Antibiotics) Physical Exam Vitals: Vital Signs Temp Pulse Pulse Resp BP BP Pulse Ox 01/17/20 08:39 38 L 01/17/20 08:00 98.8 F 48 L 18 144/72 97 01/17/20 04:00 99.1 F 69 17 120/66 98 01/17/20 00:00 98.8 F 70 17 114/56 97 01/16/20 21:40 99.8 F H 92 18 128/58 96 01/16/20 21:15 92 01/16/20 21:00 98.1 F 60 20 123/70 99 01/16/20 19:32 98.8 F 63 18 117/68 99 01/16/20 17:19 50 L 18 148/78 99 01/16/20 16:35 98.2 F 57 L 18 162/76 98 Intake and Output 01/16/20 01/17/20 01/17/20 22:59 06:59 14:59 Intake Total 1000 Balance 1000 Intake: Intake, IV Titration 1000 Amount Sodium Chloride 0.9% 1, 1000 000 ml @ 125 mls/hr IV . Q8H [facility] Rx#:[id number] Other: # Voids 1 Weight 58.967 kg 62.2 kg Results 01/16/20 17:14 01/16/20 17:14 Cardiac Enzymes 01/16/20 01/16/20 01/16/20 Range/Units 17:14 17:14 23:05 AST 51 H (14-36) U/L Troponin I <0.012 <0.012 (0.000-0.034) ng/mL 01/17/20 Range/Units 05:41 AST (14-36) U/L Troponin I <0.012 (0.000-0.034) ng/mL Coagulation 01/16/20 Range/Units 17:14 PT 10.7 (9.0-12.0) sec APTT 25.1 (22.0-30.0) sec Lipids 01/17/20 Range/Units 05:41 Triglycerides 79 (<150) mg/dL Cholesterol 166 (<200) mg/dL HDL Cholesterol 64 H (40-60) mg/dL CBC 01/16/20 Range/Units 17:14 WBC 21.6 H (3.8-10.6) k/uL RBC 4.80 (3.80-5.40) m/uL Hgb 14.5 (11.4-16.0) gm/dL Hct 45.1 (34.0-46.0) % Plt Count 351 (150-450) k/uL Comprehensive Metabolic Panel 01/16/20 Range/Units 17:14 Sodium 139 (137-145) mmol/L Potassium 5.3 H (3.5-5.1) mmol/L Chloride 108 H (98-107) mmol/L Carbon Dioxide 21 L (22-30) mmol/L BUN 17 (7-17) mg/dL Creatinine 0.55 (0.52-1.04) mg/dL Glucose 149 H (74-99) mg/dL Calcium 9.7 (8.4-10.2) mg/dL AST 51 H (14-36) U/L ALT 42 H (4-34) U/L Alkaline Phosphatase 71 (38-126) U/L Total Protein 7.6 (6.3-8.2) g/dL Albumin 4.6 (3.5-5.0) g/dL Current Medications Generic Name Dose Route Start Last Admin Trade Name Freq PRN Reason Stop Dose Admin Acetaminophen 650 mg 01/16/20 22:26 Tylenol Tab PO Q6HR PRN Fever and/ or Pain Aspirin 325 mg 01/17/20 09:00 01/17/20 08:26 Aspirin PO 325 mg DAILY NIXON Administration Guaifenesin 400 mg 01/17/20 09:00 01/17/20 08:26 Robitussin PO 400 mg DAILY NIXON Administration Sodium Chloride 1,000 mls @ 125 mls/hr 01/16/20 22:30 01/17/20 06:26 Saline 0.9% IV 125 mls/hr .Q8H NIXON Administration Loratadine 10 mg 01/17/20 09:00 01/17/20 08:24 Claritin PO 10 mg DAILY NIXON Administration Meloxicam 15 mg 01/17/20 09:00 01/17/20 08:24 Mobic PO 15 mg DAILY NIXON Administration Morphine Sulfate 4 mg 01/16/20 20:15 01/17/20 04:35 Morphine Sulfate (Inj) IV 4 mg Q6HR PRN Administration Pain Nitroglycerin 0.4 mg 01/16/20 20:15 Nitrostat SUBLINGUAL Q5M PRN Chest Pain Lipase/Protease/ 42,000 unit 01/17/20 09:00 01/17/20 08:36 Amylase [Pancreaze PO Not Given Dr] 42,000 Unit QID NIXON Tapentadol Hcl [ 100 mg 01/16/20 22:22 Nucynta] 100 Mg PO Q6HR PRN Breakthrough Pain Ondansetron HCl 4 mg 01/16/20 22:27 01/17/20 05:31 Zofran IVP 4 mg Q6HR PRN Administration Nausea And Vomiting Pantoprazole Sodium 40 mg 01/16/20 22:30 01/16/20 23:14 Protonix PO 40 mg HS NIXON Administration Intake and Output 01/16/20 01/17/20 01/17/20 22:59 06:59 14:59 Intake Total 1000 Balance 1000 Intake: Intake, IV Titration 1000 Amount Sodium Chloride 0.9% 1, 1000 000 ml @ 125 mls/hr IV . Q8H [facility] Rx#:[id number] Other: # Voids 1 Weight 58.967 kg 62.2 kg 01/16/20 17:14 01/16/20 17:14
[2020-01-17] MEDS: PROMETHAZINE INJ 6.25 MG in SODIUM CHLORIDE 0.9% 50 ML IVPB PRN ×2 (13:43→23:19)
--- NOTE | 2020-01-17 14:41 | CONS ---
CONSULTATION DATE OF CONSULTATION: January 17, 2020. REQUESTING PHYSICIAN: Dr. Johnson. REASON FOR CONSULTATION: Abdominal pain, nausea, vomiting. HISTORY OF PRESENT ILLNESS: The patient is a 54-year-old pleasant white female with history of chronic pancreatitis, and autoimmune hepatitis that was diagnosed in 2004 and follows with referral agent in [facility]. Patient states that she has not seen a Loss Prevention Auditor for the last 2 years. She has been having chronic ongoing abdominal pain for which she sees pain specialist on an outpatient basis and recently was started on medical marijuana and according to her, her symptoms have been under decent control. However, yesterday morning, she woke up with diffuse abdominal pain all over the abdomen, mostly in the epigastric area associated with several episodes of nausea and vomiting. She threw up at least 20 or 30 times, which were all bilious in nature. The pain continued to progressively get worse and hence came to the emergency room and subsequently admitted to the hospital for further evaluation. The patient states that she was extensively evaluated for her chronic pancreatitis in the [place] with multiple ERCPs and EGD. She also had gallbladder surgery while she was living in [place] several years ago. She was told the etiology of pancreatitis was also related to autoimmune disease. No records available at the time of this dictation. She has been maintained on pancreatic enzyme supplements for several years. PAST MEDICAL HISTORY: Significant for chronic pancreatitis. Chronic pain syndrome, history of COPD, gastroesophageal reflux disease, DVT in the past, degenerative joint disease, questionable history of rheumatoid arthritis. ALLERGIES: FORMALDEHYDE, LASIX. PENICILLIN, BETADINE, SULFA. MEDICATIONS: At home include Nexium, Claritin, Zantac, Reglan, prednisone, Zantac, aspirin and Celebrex. PAST SURGICAL HISTORY: Cholecystectomy, hysterectomy, right knee arthroscopy. SOCIAL HISTORY: No alcohol use. No smoking. FAMILY HISTORY: Mother had coronary artery disease. Father had diabetes mellitus and congestive heart failure. REVIEW OF SYSTEMS: CARDIOPULMONARY: No chest pain or shortness of breath. no dysuria or hematuria. MUSCULOSKELETAL unremarkable. NEUROLOGY unremarkable. PSYCHIATRIC unremarkable. ENT/VISION: Unremarkable. CONSTITUTIONAL: No recent weight loss. No fever, chills, night sweats. GI as mentioned above. PHYSICAL EXAMINATION: She appears comfortable. No apparent distress. Vital signs stable. Blood pressure 112/86, pulse rate is 68, temperature 98.7. HEENT examination unremarkable. Conjunctivae pink. Sclerae anicteric. Oral cavity no lesions. NECK no JVD. No lymph node enlargement. CHEST: Clear to auscultation. HEART: Regular rate and rhythm. ABDOMEN: Diffuse tenderness all over the abdomen, more predominant in the epigastric area and right upper quadrant area. Rest of the abdomen benign. EXTREMITIES: No pedal edema. SKIN no rashes. NEUROLOGIC: Alert and oriented x3. No focal deficits. LABS: WBC of 21.6, hemoglobin 14.5, platelets normal. Basic metabolic panel is within normal limits. PT/INR is normal. ALT and AST are 51 and 42, respectively. Amylase and lipase are normal at 64 and 115 respectively. Albumin is 4.6. Urinalysis 3+ ketones. She did have a CT scan of the abdomen and pelvis done in the emergency room yesterday that showed pancreas appeared normal and no suspicious acute changes noted. IMPRESSION: 1. This is a lady who presents to the hospital with history of chronic abdominal pain of several years duration with history of chronic pancreatitis diagnosed in 2004. Follows with [facility] Prevention Auditor in the [place] and presents to the hospital with ongoing severe abdominal pain associated with intractable nausea, vomiting that started yesterday morning. Her symptoms have been progressively getting worse. She received Zofran and Protonix and continues to remain symptomatic. No old records available at the time of this dictation. According to the patient, she had multiple ERCPs and EGDs done in the [facility] in the past and the etiology was chronic autoimmune pancreatitis. She states that she usually gets treated with steroids during a flare up and the last time she received steroids was in September of this year. 2. Questionable history of autoimmune hepatitis however patient does not seem to be on any immunosuppressive therapy at the present time. No records available at the time of this dictation. 3. Atypical chest pain. 4. History of chronic pain syndrome. RECOMMENDATIONS: 1. Continue with Protonix 40 mg daily. 2. Continue Zofran every 6 hours. 3. We will add Phenergan 6.25 mg every 6 hours for the nausea, vomiting. 4. Continue with pancreatic enzyme supplements. 5. Start on a clear liquid diet. 6. We will follow with you closely. Thank you for this consultation. MMODL / IJN: [id number] /
--- NOTE | 2020-01-17 16:00 | ECHOF ---
Referral Reason:chest pain MEASUREMENTS -------- HEIGHT: 157.5 cm WEIGHT: 59.0 kg BP: 144/72 IVSd: 1.0 cm (0.6 - 1.1) LVIDd: 4.2 cm (3.9 - 5.3) LVPWd: 0.9 cm (0.6 - 1.1) IVSs: 1.3 cm LVIDs: 2.2 cm LVPWs: 1.4 cm LA Diam: 3.1 cm (2.7 - 3.8) RVIDd: 2.3 cm (< 3.3) LAESV Index (A-L): 25.62 ml/m Ao Diam: 2.8 cm (2.0 - 3.7) AV Cusp: 1.9 cm (1.5 - 2.6) EPSS: 0.5 cm MV E Brian: 1.16 m/s MV DecT: 248 ms MV A Brian: 0.70 m/s MV E/A Ratio: 1.65 RAP: 15.00 mmHg RVSP: 27.61 mmHg MV EF SLOPE: 68.76 mm/s (70 - 150) MV EXCURSION: 10.43 mm (> 18.000) FINDINGS -------- Sinus rhythm. This was a technically good study. The left ventricular size is normal. Left ventricular wall thickness is normal. Overall left vent ricular systolic function is normal with, an EF between 60 - 65 %. The right ventricle is normal in size. Normal LA size by volume 22+/-6 ml/m2. The right atrium is normal in size. Interatrial and interventricular septum intact. The aortic valve is trileaflet and appears structurally normal. The mitral valve is normal. Mild tricuspid regurgitation present. Right ventricular systolic pressure is normal at < 35 mmHg. Trace/mild (physiologic) pulmonic regurgitation. The aortic root size is normal. The inferior vena cava is dilated with poor inspiratory collapse which is consistent with estimated r ight atrial pressure of 15 mmHg. There is no pericardial effusion. CONCLUSIONS -------- 1. Sinus rhythm. 2. This was a technically good study. 3. The left ventricular size is normal. 4. Left ventricular wall thickness is normal. 5. Overall left ventricular systolic function is normal with, an EF between 60 - 65 %. 6. The right ventricle is normal in size. 7. Normal LA size by volume 22+/-6 ml/m2. 8. The right atrium is normal in size. 9. Interatrial and interventricular septum intact. 10. The aortic valve is trileaflet and appears structurally normal. 11. The mitral valve is normal. 12. Mild tricuspid regurgitation present. 13. Right ventricular systolic pressure is normal at < 35 mmHg. 14. Trace/mild (physiologic) pulmonic regurgitation. 15. The aortic root size is normal. 16. The inferior vena cava is dilated with poor inspiratory collapse which is consistent with estimat ed right atrial pressure of 15 mmHg. 17. There is no pericardial effusion. CLOUD SOFTWARE ENGINEER: Gale Morgan RDCS
--- NOTE | 2020-01-17 19:15 | P.HPIM ---
History of Present Illness H&P Date: 01/17/20 Chief Complaint: Abdominal pain History of presenting complaint: This is a pleasant 54-year-old patient of Dr. Eva Johnson. We'll extensive medical history. 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 Patient has diagnoses of autoimmune disorders that includes lupus, scleroderma, chronic autoimmune hepatitis and pancreatitis. Patient's is October of this year started having nausea vomiting diarrhea and increasing abdominal pain. She was afraid to come in the hospital because of the colon with 19%. She did see her supervisor lead refinery and was given a dose of steroid. Did feel a bit better. And his symptoms again recurred. Continue to have nausea vomiting some diarrhea abdominal pain. Patient has been on a restricted diet. She also had a flareup of her asthma. With ALLERGIES. Again for the same reason decided not to come the hospital. Now for last 2 weeks symptoms got much worse all of the above and she decided to come in. His been no fever no chills. No respiratory symptoms currently. Review of systems: GEN.: Tired EYES: None HEENT: None NECK: None RESPIRATORY: None CARDIOVASCULAR: None GASTROINTESTINAL: As above GENITOURINARY: None MUSCULOSKELETAL: Joint pains LYMPHATICS: None HEMATOLOGICAL: None PSYCHIATRY: Anxious] NEUROLOGICAL: None Past medical history to include: Asthma, DVT, GERD, GI bleed, rheumatoid arthritis, lupus, scleroderma, peptic ulcer disease, chronic autoimmune hepatitis, pancreatitis, delayed gastric empt trista, hepatitis, hiatal hernia, factor XII deficiency, Raynaud's disease, 8 microinfarctions, endometriosis, scoliosis Social history: Does medical marijuana, lives with her fianc, does not smoke or drink alcohol. Physical examination: VITAL SIGNS: 98.2, 57, 18, 140-78, 99% on room air GENERAL: BMI 25.1, sitting up in bed so rather anxious. EYES: Pupils equal. Conjunctiva normal. HEENT: External appearance of nose and ears normal, oral cavity grossly normal. NECK: JVD not raised; masses not palpable. HEART: First and second heart sounds are normal; no edema. LUNGS: Respiratory rate normal; clear to auscultation. ABDOMEN: Soft, upper abdominal tenderness, no guarding or rigidity, liver spleen not palpable, no masses palpable. PSYCH: [Alert and oriented x3; mood and affect anxious l. NEUROLOGICAL: Cranial nerves grossly intact; no facial asymmetry, power and sensation grossly intact. LYMPHATICS: No lymph nodes palpable in the axilla and neck INVESTIGATIONS, reviewed in the clinical context: White count 21 bun 6 hemoglobin 40.5 platelets 351 potassium 5.3 bun 17 creat inine 0.55 AST 51 ALT 42 troponin negative TSH 1.8 amylase 64 lipase 150 COVID -19 PCR-not detected EKG tracing personally reviewed by me-normal sinus rhythm Chest x-ray film personally reviewed by me-lung merritt clear Computed tomography scan of the abdomen some fluid-filled loops of ileum in the right lower quadrant Abdominal ultrasound-evidence of cholecystectomy otherwise unremarkable Assessment: -This this is a patient with chronic abdominal pain for many years for diagnoses of chronic pancreatitis somewhere around 2004 also follows the gastroenterologists in the [place] area with symptoms now presents for "3 months. Off-and-on. She's had prior ERCP and EGDs and also cholecystectomy. -Asthma currently stable -History of multiple DVTs -Coronary artery disease patient describes prior 8 MRIs -History of lupus keratoderma chronic autoimmune hepatitis and pancreatitis- hiatal hernia -Factor XII deficiency -Raynaud's depleted --scoliosis Plan: Patient profile IV fluids, home medications resumed. Consultation made to GI and rheumatology. Care was discussed with the patient question were answered. Supportive care to continue for now. Patient started with clear liquid diet. Had Lovenox for DVT prophylaxis. Past Medical History Past Medical History: Asthma, COPD, Deep Vein Thrombosis (DVT), GERD/Reflux, GI Bleed, Memory Impairment, Myocardial Infarction (UT), Osteoarthritis (OA), Rheumatoid Arthritis (RA) Additional Past Medical History / Comment(s): lupus,scleroderma, hypoglycemia,ulcers,chronic autoimmune hepatitis and pancreatits(ON PANCREATIC DIET AT HOME),delayed gastric emptying,diverticulitis,hiatal hernia, abd hernia,factor 12 deficiency,raynauls dz, pt stated "has had 8 mi's", endometreosis,"irreg heat beat", ddd, scoliosis. Last Myocardial Infarction Date:: UNK History of Any Multi-Drug Resistant Organisms: None Reported Past Surgical History: Cholecystectomy, Hysterectomy, Orthopedic Surgery Additional Past Surgical History / Comment(s): 2 rt arthroscopic sx to clean knee up, total rt knee replacement, plate in neck, lt knee arthroscopy and cleaned out, nose sx(rhinoplasty), laparoscopy- adhesions/scar tissue removed Past Anesthesia/Blood Transfusion Reactions: No Reported Reaction Additional Past Anesthesia/Blood Transfusion Reaction / Comment(s): PT THINKS SHE MAY HAVE HAD A BLOOD TRANSFUSION IN PAST Past Psychological History: No Psychological Hx Reported Smoking Status: Never smoker Past Alcohol Use History: None Reported Past Drug Use History: Marijuana Additional Drug Use History / Comment(s): MEDICAL MARIJUANA - Past Family History Mother Additional Family Medical History / Comment(s): HEART PROBLEMS Father Family Medical History: Coronary Artery Disease (CAD), Diabetes Mellitus, Renal Disease Additional Family Medical History / Comment(s): LUPUS, HEART PROBLEMS Medications and Allergies Home Medications Medication Instructions Recorded Confirmed Type Celecoxib [CeleBREX] 200 mg PO BID 08/24/15 01/16/20 History Esomeprazole Magnesium [NexIUM] 40 mg PO HS 08/24/15 01/16/20 History Lipase/Protease/Amylase [Pancreaze 42,000 unit PO QID 08/24/15 01/16/[address]] Loratadine [Claritin] 10 mg PO DAILY 08/24/15 01/16/20 History guaiFENesin 400 mg PO DAILY 04/12/18 01/16/20 History Albuterol Sulfate [Proair Hfa] 2 puff INHALATION RT-Q4H PRN 01/16/20 01/16/20 History Fluticasone/Salmeterol [Advair 2 puff INHALATION RT-BID 01/16/20 01/16/20 History 250-50 Diskus] Ondansetron [Zofran] 4 mg PO DAILY PRN 01/16/20 01/16/20 History Polyethylene Glycol 3350 [Miralax] 17 gm PO BID PRN 01/16/20 01/16/20 History Tapentadol HCl [Nucynta] 100 mg PO Q6HR PRN 01/16/20 01/16/20 History Tiotropium [place] [Spiriva 1 puff INHALATION RT-BID 01/16/20 01/16/20 History Respimat] Allergies Allergy/AdvReac Type Severity Reaction Status Date / Time formaldehyde Allergy Rash/Hives Verified 01/16/20 22:26 latex Allergy Rash/Hives Verified 01/16/20 22:26 nickel Allergy Rash/Hives Verified 01/16/20 22:26 Penicillins Allergy Rash/Hives Verified 01/16/20 22:26 povidone-iodine Allergy Rash/Hives Verified 01/16/20 22:26 [From Betadine] soap [From Betadine] Allergy Rash/Hives Verified 01/16/20 22:26 Sulfa (Sulfonamide Allergy Anaphylaxis Verified 01/16/20 22:26 Antibiotics) Physical Exam Vitals: Vital Signs Temp Pulse Pulse Resp BP BP Pulse Ox 01/17/20 08:39 38 L 01/17/20 08:00 98.8 F 48 L 18 144/72 97 01/17/20 04:00 99.1 F 69 17 120/66 98 01/17/20 00:00 98.8 F 70 17 114/56 97 01/16/20 21:40 99.8 F H 92 18 128/58 96 01/16/20 21:15 92 01/16/20 21:00 98.1 F 60 20 123/70 99 01/16/20 19:32 98.8 F 63 18 117/68 99 01/16/20 17:19 50 L 18 148/78 99 01/16/20 16:35 98.2 F 57 L 18 162/76 98 Intake and Output 01/16/20 01/17/20 01/17/20 22:59 06:59 14:59 Intake Total 1000 Balance 1000 Intake: Intake, IV Titration 1000 Amount Sodium Chloride 0.9% 1, 1000 000 ml @ 125 mls/hr IV . Q8H [facility] Rx#:[id number] Other: # Voids 1 Weight 58.967 kg 62.2 kg Results CBC & Chem 7: 01/16/20 17:14 01/16/20 17:14 Labs: Abnormal Lab Results - Last 24 Hours (Table) 01/16/20 01/16/20 01/16/20 Range/Units 17:14 17:14 19:47 WBC 21.6 H (3.8-10.6) k/uL Neutrophils # 19.7 H (1.3-7.7) k/uL Lymphocytes # 0.9 L (1.0-4.8) k/uL Potassium 5.3 H (3.5-5.1) mmol/L Chloride 108 H (98-107) mmol/L Carbon Dioxide 21 L (22-30) mmol/L Glucose 149 H (74-99) mg/dL POC Glucose (mg/dL) (75-99) mg/dL Magnesium 1.4 L (1.6-2.3) mg/dL AST 51 H (14-36) U/L ALT 42 H (4-34) U/L HDL Cholesterol (40-60) mg/dL Ur Specific [place] >1.050 H (1.001-1.035) Urine Protein Trace H (Negative) Urine Ketones 3+ H (Negative) 01/17/20 01/17/20 Range/Units 05:41 05:48 WBC (3.8-10.6) k/uL Neutrophils # (1.3-7.7) k/uL Lymphocytes # (1.0-4.8) k/uL Potassium (3.5-5.1) mmol/L Chloride (98-107) mmol/L Carbon Dioxide (22-30) mmol/L Glucose (74-99) mg/dL POC Glucose (mg/dL) 132 H (75-99) mg/dL Magnesium (1.6-2.3) mg/dL AST (14-36) U/L ALT (4-34) U/L HDL Cholesterol 64 H (40-60) mg/dL Ur Specific [place] (1.001-1.035) Urine Protein (Negative) Urine Ketones (Negative) Thrombosis Risk Factor Assmnt - Choose All That Apply Any of the Below Risk Factors Present?: Yes Each Factor Represents 1 point: Abnormal pulmonary function (COPD), Age 41-60 years Other Risk Factors: No Other congenital or acquired thrombophilia - If yes, enter type in comment: No Thrombosis Risk Factor Assessment Total Risk Factor Score: 2 Thrombosis Risk Factor Assessment Level: Low Risk
[2020-01-17] MEDS: PANTOPRAZOLE 40 MG TABLET PO SCH (21:30)
[2020-01-18] MEDS: ONDANSETRON 4 MG/2 ML VIAL IVP PRN ×3 (04:18→18:04)
[2020-01-18] MEDS: PROMETHAZINE INJ 6.25 MG in SODIUM CHLORIDE 0.9% 50 ML IVPB PRN ×3 (04:53→21:18)
[2020-01-18] MEDS: MORPHINE SULFATE 4 MG/ML SYRINGE IV PRN ×3 (04:59→18:04)
[2020-01-18] MEDS: SODIUM CHLORIDE 0.9% 1,000 ML IV SCH ×3 (06:27→21:14)
[2020-01-18] MEDS: IPRATROPIUM 0.5 MG/2.5 ML NEBU INHALATION SCH ×4 (09:06→19:22)
[2020-01-18] MEDS: LIPASE PO SCH ×4 (11:03→21:14)
[2020-01-18] MEDS: AMYLASE PO SCH ×4 (11:03→21:14)
[2020-01-18] MEDS: PROTEASE PO SCH ×4 (11:03→21:14)
[2020-01-18] MEDS: LORATADINE 10 MG TAB PO SCH (11:04)
[2020-01-18] MEDS: ASPIRIN 81 MG PO SCH (11:04)
[2020-01-18] MEDS: MELOXICAM 7.5 MG TAB PO SCH (11:09)
[2020-01-18] MEDS: guaiFENesin SYRUP 100MG/5ML 200 MG/10 ML CUP PO SCH (11:10)
[2020-01-18] MEDS: SYMBICORT 80-4.5 MCG INHALER INHALATION SCH ×2 (12:26→19:22)
--- NOTE | 2020-01-18 13:42 | P.PN ---
Subjective This is Angela Kiser PA-C dictating a progress note on this patient The patient was interviewed and examined by me as well as by Dr. Park Case discussed with Dr. Park and he agrees with the plan of care HPI/interval history Patient is a 54-year-old female with a history of chronic pancreatitis, autoimmune disorders who presented with complaints of nausea vomiting and abdominal pain. She has had some sinus bradycardia with heart rates dropping into the high 30s during episodes of vomiting. Today her heart rates have been in the high 40s to 60s. Patient seen and examined resting in bed. Continues to complain of abdominal pain, nausea and vomiting. EXAMINATION Temperature 99.1F, pulse in the 50s, respirations 18, blood pressure 159/74, oxygen saturation 98% on room air Patient seen and examined resting in bed, does not reveal any acute distress Lungs clear to auscultation bilaterally Heart is regular, soft systolic murmur Abdomen tender to palpation diffusely REVIEW OF LABS, ECG No new labs today Echocardiogram shows EF 60 is 65% IMPRESSION / ASSESSMENT: #1 abdominal pain, nausea and vomiting, GI following #2 atypical chest discomfort radiating from the epigastric area and left upper quadrant, normal cardiac enzymes #3 sinus bradycardia, not on any AV kindra blocking drugs, likely vagally mediated and exacerbated by vomiting #4 multiple autoimmune disorders PLAN: Continue to monitor telemetry Management of multiple medical problems and abdominal pain, nausea and vomiting by primary care team and consultants Objective - Vital Signs Vital signs: Vital Signs Temp 99.1 F 01/18/20 11:02 Pulse 50 L 01/18/20 12:45 Resp 18 01/18/20 12:00 BP 159/74 01/18/20 11:02 Pulse Ox 98 01/18/20 11:02 Intake & Output 01/17/20 01/18/20 01/18/20 18:59 06:59 18:59 Intake Total 1540 237 Balance 1540 237 Weight 66 kg Intake: Intake, IV Titration 1000 Amount Sodium Chloride 0.9% 1, 1000 000 ml @ 125 mls/hr IV . Q8H [facility] Rx#:[id number] Oral 540 237 Other: Voiding Method Toilet Toilet # Voids 2 1 # Bowel Movements 2 - Labs CBC & Chem 7: 01/16/20 17:14 01/16/20 17:14
--- NOTE | 2020-01-18 15:03 | PN ---
PROGRESS NOTE DATE OF SERVICE: 01/18/2020 The patient is a 54-year-old white female admitted to hospital with severe abdominal pain associated with nausea and vomiting for the last 2-3 days duration. History of chronic pancreatitis for which she follows with GI in the [facility]. Presently on Zofran and Phenergan for the nausea with mild improvement in her symptoms. Last night she states that she had worsening abdominal pain and threw up at least 4 times, all bilious in nature. No fever, chills, night sweats. PHYSICAL EXAMINATION: She appears comfortable. No apparent distress. Vital signs are stable. Blood pressure is 159/82, pulse rate 48, temperature 99. HEENT examination unremarkable. Conjunctivae pink. Sclerae anicteric. Oral cavity no lesions. NECK: No JVD or lymph node enlargement. CHEST: Clear to auscultation. HEART: Regular rate and rhythm. ABDOMEN: Soft. Mild diffuse tenderness. Bowel sounds are positive. No organomegaly. EXTREMITIES: No pedal edema. SKIN: No rashes. NEUROLOGIC: Alert and oriented x3. No focal deficits. LAB: Amylase and lipase are normal. Basic metabolic panel is within normal limits. IMPRESSION: 1. History of chronic pancreatitis with severe epigastric pain associated with nausea and vomiting for the last 2 days duration. Currently on antiemetics with minimal improvement in her symptoms. On clear liquid diet, also. 2. Questionable history of chronic autoimmune pancreatitis, presently on no medications. 3. Chronic constipation. 4. Gastroesophageal reflux disease. RECOMMENDATIONS: 1. Continue with a clear liquid diet today. 2. Antiemetics as needed. 3. Pain medications as needed. 4. Continue with the pancreatic enzyme supplements. 5. We will follow with you closely. Thank you for this consultation. MMODL / IJN: [id number] /
[2020-01-18 19:57] LABS: Glucose,Whole Blood 106 mg/dL (75-99)
[2020-01-18 20:25] LABS: Appearance,Urine Clear (Clear); Bilirubin,Urine Negative (Negative); Blood,Urine Negative (Negative); Color,Urine Yellow; Glucose,Urine (UA) Negative (Negative); Ketones,Urine 2+ (Negative); Leukocyte Esterase,Urine Negative (Negative); Nitrite,Urine Negative (Negative); PH, Urine 5.5 (5.0-8.0); Protein,Urine Trace (Negative); Specific Gravity,Urine 1.022 (1.001-1.035); Urobilinogen,Urine <2.0 mg/dL (<2.0)
--- NOTE | 2020-01-18 20:30 | P.PN ---
Progress Note - Text Progress Note Date: 01/18/20 Chief Complaint: Abdominal pain History of presenting complaint: This is a pleasant 54-year-old patient of Dr. Eva Johnson. We'll extensive medical history. 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 Patient has diagnoses of autoimmune disorders that includes lupus, scleroderma, chronic autoimmune hepatitis and pancreatitis. Patient's is October of this year started having nausea vomiting diarrhea and increasing abdominal pain. She was afraid to come in the hospital because of the colon with 19%. She did see her regulatory compliance coordinator and was given a dose of steroid. Did feel a bit better. And his symptoms again recurred. Continue to have nausea vomiting some diarrhea abdominal pain. Patient has been on a restricted diet. She also had a flareup of her asthma. With ALLERGIES. Again for the same reason decided not to come the hospital. Now for last 2 weeks symptoms got much worse all of the above and she decided to come in. His been no fever no chills. No respiratory symptoms currently. Admitted with-acute and chronic pancreatitis, gastritis. Today-abdominal pain a bit better. Tolerated liquid diet. Decreased nausea. Bit more cheerful Review of systems: Was done for constitutional, cardiovascular, GI, pulmonary. relevant finding as above Active Medications Acetaminophen (Tylenol Tab) 650 mg PO Q6HR PRN PRN Reason: Fever and/ or Pain Aspirin (Aspirin) 81 mg PO DAILY [facility] Last Admin: 01/18/20 11:04 Dose: 81 mg Documented by: Budesonide/Formoterol Fumarate (Symbicort 80-4.5 Mcg Inhaler) 2 puff INHALATION RT-BID [facility] Last Admin: 01/18/20 19:22 Dose: Not Given Documented by: Guaifenesin (Robitussin) 400 mg PO DAILY [facility] Last Admin: 01/18/20 11:10 Dose: Not Given Documented by: Sodium Chloride (Saline 0.9%) 1,000 mls @ 125 mls/hr IV .Q8H [facility] Last Admin: 01/18/20 12:17 Dose: 125 mls/hr Documented by: Promethazine HCl 6.25 mg/ (Sodium Chloride) 50.25 mls @ 200 mls/hr IVPB Q6HR PRN PRN Reason: Nausea Last Admin: 01/18/20 15:42 Dose: 200 mls/hr Documented by: Ipratropium [place] (Atrovent Nebulized) 0.5 mg INHALATION RT-QID [facility] Last Admin: 01/18/20 19:22 Dose: Not Given Documented by: Loratadine (Claritin) 10 mg PO DAILY [facility] Last Admin: 01/18/20 11:04 Dose: 10 mg Documented by: Meloxicam (Mobic) 15 mg PO DAILY [facility] Last Admin: 01/18/20 11:09 Dose: 15 mg Documented by: Morphine Sulfate (Morphine Sulfate (Inj)) 4 mg IV Q6HR PRN PRN Reason: Pain Last Admin: 01/18/20 18:04 Dose: 4 mg Documented by: Nitroglycerin (Nitrostat) 0.4 mg SUBLINGUAL Q5M PRN PRN Reason: Chest Pain Lipase/Protease/Amylase [Pancreroberto Dr] 21,000 Unit 42,000 unit PO QID [facility] Last Admin: 01/18/20 18:03 Dose: 42,000 unit Documented by: Tapentadol Hcl [ (Nucynta] 100 Mg) 100 mg PO Q6HR PRN PRN Reason: Breakthrough Pain Ondansetron HCl (Zofran) 4 mg IVP Q6HR PRN PRN Reason: Nausea And Vomiting Last Admin: 01/18/20 18:04 Dose: 4 mg Documented by: Pantoprazole Sodium (Protonix) 40 mg PO HS [facility] Last Admin: 01/17/20 21:30 Dose: 40 mg Documented by: Physical examination: VITAL SIGNS: 98.1, 60, 17, 134 a 73, 97% room air GENERAL: propped up in bed with more relaxed EYES: Pupils equal. Conjunctiva normal. HEENT: External appearance of nose and ears normal, oral cavity grossly normal. NECK: JVD not raised; masses not palpable. HEART: First and second heart sounds are normal; no edema. LUNGS: Respiratory rate normal; clear to auscultation. ABDOMEN: Soft, decreased abdominal tenderness, no guarding or rigidity, liver spleen not palpable, no masses palpable. PSYCH: [Alert and oriented x3; mood and affect anxious INVESTIGATIONS, reviewed in the clinical context: White count 21 bun 6 hemoglobin 40.5 platelets 351 potassium 5.3 bun 17 creatinine 0.55 AST 51 ALT 42 troponin negative TSH 1.8 amylase 64 lipase 150 COVID -19 PCR-not detected EKG tracing personally reviewed by me-normal sinus rhythm Chest x-ray film personally reviewed by me-lung merritt clear Computed tomography scan of the abdomen some fluid-filled loops of ileum in the right lower quadrant Abdominal ultrasound-evidence of cholecystectomy otherwise unremarkable Assessment: -This this is a patient with chronic abdominal pain for many years for diagnoses of chronic pancreatitis somewhere around 2004 also follows the gastroenterologists in the [place] area with symptoms now presents for "3 months. Off-and-on. She's had prior ERCP and EGDs and also cholecystectomy. -Asthma currently stable -History of multiple DVTs -Coronary artery disease patient describes prior 8 MRIs -History of lupus keratoderma chronic autoimmune hepatitis and pancreatitis-hiatal hernia -Factor XII deficiency -Raynaud's depleted --scoliosis Plan: -Patient with a bit better. Continue with IV fluids. Follow with GI. Encouraged to be out of bed.
[2020-01-18] MEDS: PANTOPRAZOLE 40 MG TABLET PO SCH (21:13)
[2020-01-19] MEDS: MORPHINE SULFATE 4 MG/ML SYRINGE IV PRN ×3 (01:42→12:29)
[2020-01-19] MEDS: ONDANSETRON 4 MG/2 ML VIAL IVP PRN ×3 (01:43→20:58)
[2020-01-19] MEDS: PROMETHAZINE INJ 6.25 MG in SODIUM CHLORIDE 0.9% 50 ML IVPB PRN (04:20)
[2020-01-19] MEDS: SODIUM CHLORIDE 0.9% 1,000 ML IV SCH ×3 (04:21→22:38)
[2020-01-19] MEDS: LIPASE PO SCH ×4 (08:36→20:37)
[2020-01-19] MEDS: AMYLASE PO SCH ×4 (08:36→20:37)
[2020-01-19] MEDS: PROTEASE PO SCH ×4 (08:36→20:37)
[2020-01-19] MEDS: guaiFENesin SYRUP 100MG/5ML 200 MG/10 ML CUP PO SCH (08:37)
[2020-01-19] MEDS: ASPIRIN 81 MG PO SCH (08:37)
[2020-01-19] MEDS: MELOXICAM 7.5 MG TAB PO SCH (08:39)
[2020-01-19] MEDS: LORATADINE 10 MG TAB PO SCH (08:39)
[2020-01-19] MEDS: SYMBICORT 80-4.5 MCG INHALER INHALATION SCH ×2 (08:47→19:53)
[2020-01-19] MEDS: IPRATROPIUM 0.5 MG/2.5 ML NEBU INHALATION SCH ×4 (08:47→19:53)
--- NOTE | 2020-01-19 11:07 | PN ---
PROGRESS NOTE Mrs. Cuevas is a 54-year-old female who presented with abdominal discomfort. She has a history of hepatitis, carries diagnosis of myocardial infarction, although full detail of that are not available to me. She had episode of bradycardia on presentation. She continues to have abdominal pain but no chest pain. She denies any dizziness or palpitation. She denies any significant change in her breathing. She continues to be at this time on aspirin once a day, lipase protease, meloxicam, Protonix. PHYSICAL EXAMINATION: Blood pressure running in the 130s with a heart rate in the 50s. LUNGS: Clear. HEART: Regular rate and rhythm, S1, S2. No S3. No rub appreciated. ABDOMEN: Soft, nontender. No rebound. Positive bowel sounds, no organomegaly. EXTREMITIES: No edema. IMPRESSION: 1. History of chronic pancreatitis with recurrent abdominal pain with nausea. 2. Questionable prior myocardial infarction. No evidence for acute coronary syndrome at this time. RECOMMENDATION: From the cardiac standpoint, I see no evidence of active cardiac issue at this time. Will continue clinical observation. I see no indication for further cardiac workup. Will see her on an as-needed basis. Please feel free to call us for any question. MMODL / IJN: [id number] / MTDD
--- NOTE | 2020-01-19 14:43 | PN ---
PROGRESS NOTE DATE OF SERVICE: 01/19/2020 Patient is a 54-year-old white female with history of chronic pancreatitis, follows with Dr. David at [facility], was admitted to the hospital because of severe abdominal pain associated with nausea, vomiting. She has been on antiemetics as well as Protonix and continues to have symptoms on a daily basis. She is requesting for her to be treated with steroids for chronic autoimmune pancreatitis. No records available at the time of this dictation. She states that she was treated in September with prednisone 40 mg daily. Records have been requested. None available at the time of this dictation. PHYSICAL EXAMINATION: Comfortable, in no apparent distress. Vital signs are stable, blood pressure 162/88, pulse rate 89, temperature 98. HEENT: Examination unremarkable, conjunctivae are pink, sclerae nonicteric, oral cavity no lesions. NECK: No JVD or lymph node enlargement. CHEST: Clear to auscultation. HEART: Regular rate and rhythm. ABDOMEN: Soft, bowel sounds are positive. Diffuse mild tenderness around the abdomen. EXTREMITIES: No pedal edema. NEUROLOGIC: Alert and oriented x3. No focal deficits. LABS: No labs available from today. IMPRESSION: 1. Chronic pancreatitis, etiology unclear. The patient states that she has chronic autoimmune pancreatitis. Records have been requested. None available at the time of this dictation. 2. Intractable nausea, vomiting, and abdominal pain. 3. Questionable history of autoimmune hepatitis, but on no medications currently. 4. History of gastroesophageal reflux disease. 5. Anxiety and depression. RECOMMENDATIONS: 1. Continue with symptomatic and supportive care. 2. Continue with clear liquid diet. 3. Antiemetics and Protonix daily. 4. Requested all medical records. 5. Will follow with you closely. Thank you for this consultation. MMODL / IJN: [id number] /
--- NOTE | 2020-01-19 16:32 | P.PN ---
Progress Note - Text Progress Note Date: 01/19/20 Chief Complaint: Abdominal pain History of presenting complaint: This is a pleasant 54-year-old patient of Dr. Eva Johnson. We'll extensive medical history. Patient follows with Dr. Hanson as her architecture consultant. Patient has diagnoses of autoimmune disorders that includes lupus, scleroderma, chronic autoimmune hepatitis and pancreatitis. Patient's is October of this year started having nausea vomiting diarrhea and increasing abdominal pain. She was afraid to come in the hospital because of the colon with 19%. She did see her architecture consultant and was given a dose of steroid. Did feel a bit better. And his symptoms again recurred. Continue to have nausea vomiting some diarrhea abdominal pain. Patient has been on a restricted diet. She also had a flareup of her asthma. With ALLERGIES. Again for the same reason decided not to come the hospital. Now for last 2 weeks symptoms got much worse all of the above and she decided to come in. His been no fever no chills. No respiratory symptoms currently. Admitted with-acute and chronic pancreatitis, gastritis. Today-today complaining of abdominal pain some nausea vomiting. On liquid diet. Being followed by GI. No fever no chills. Review of systems: Was done for constitutional, cardiovascular, GI, pulmonary. relevant finding as above Active Medications Acetaminophen (Tylenol Tab) 650 mg PO Q6HR PRN PRN Reason: Fever and/ or Pain Aspirin (Aspirin) 81 mg PO DAILY [facility] Last Admin: 01/19/20 08:37 Dose: Not Given Documented by: Budesonide/Formoterol Fumarate (Symbicort 80-4.5 Mcg Inhaler) 2 puff INHALATION RT-BID [facility] Last Admin: 01/19/20 08:47 Dose: Not Given Documented by: Guaifenesin (Robitussin) 400 mg PO DAILY [facility] Last Admin: 01/19/20 08:37 Dose: Not Given Documented by: Sodium Chloride (Saline 0.9%) 1,000 mls @ 125 mls/hr IV .Q8H [facility] Last Admin: 01/19/20 11:18 Dose: 125 mls/hr Documented by: Promethazine HCl 6.25 mg/ (Sodium Chloride) 50.25 mls @ 200 mls/hr IVPB Q6HR PRN PRN Reason: Nausea Last Admin: 01/19/20 04:20 Dose: 200 mls/hr Documented by: Ipratropium [place] (Atrovent Nebulized) 0.5 mg INHALATION RT-QID [facility] Last Admin: 01/19/20 15:34 Dose: Not Given Documented by: Loratadine (Claritin) 10 mg PO DAILY [facility] Last Admin: 01/19/20 08:39 Dose: 10 mg Documented by: Meloxicam (Mobic) 15 mg PO DAILY [facility] Last Admin: 01/19/20 08:39 Dose: 15 mg Documented by: Morphine Sulfate (Morphine Sulfate (Inj)) 4 mg IV Q6HR PRN PRN Reason: Pain Last Admin: 01/19/20 12:29 Dose: 4 mg Documented by: Nitroglycerin (Nitrostat) 0.4 mg SUBLINGUAL Q5M PRN PRN Reason: Chest Pain Lipase/Protease/Amylase [Lisa Dr] 21,000 Unit 42,000 unit PO QID [facility] Last Admin: 01/19/20 11:18 Dose: 42,000 unit Documented by: Tapentadol Hcl [ (Nucynta] 100 Mg) 100 mg PO Q6HR PRN PRN Reason: Breakthrough Pain Ondansetron HCl (Zofran) 4 mg IVP Q6HR PRN PRN Reason: Nausea And Vomiting Last Admin: 01/19/20 08:23 Dose: 4 mg Documented by: Pantoprazole Sodium (Protonix) 40 mg PO HS [facility] Last Admin: 01/18/20 21:13 Dose: 40 mg Documented by: Physical examination: VITAL SIGNS: 98.8, 89, 20, 160-77, 98% on room air GENERAL: Laying in bed, anxious EYES: Pupils equal. Conjunctiva normal. HEENT: External appearance of nose and ears normal, oral cavity grossly normal. NECK: JVD not raised; masses not palpable. HEART: First and second heart sounds are normal; no edema. LUNGS: Respiratory rate normal; clear to auscultation. ABDOMEN: Soft, some abdominal tenderness, no guarding or rigidity, liver spleen not palpable, no masses palpable. PSYCH: [Alert and oriented x3; mood and affect anxious INVESTIGATIONS, reviewed in the clinical context: White count 21 bun 6 hemoglobin 40.5 platelets 351 potassium 5.3 bun 17 creatinine 0.55 AST 51 ALT 42 troponin negative TSH 1.8 amylase 64 lipase 150 COVID -19 PCR-not detected EKG tracing personally reviewed by me-normal sinus rhythm Chest x-ray film personally reviewed by me-lung merritt clear Computed tomography scan of the abdomen some fluid-filled loops of ileum in the right lower quadrant Abdominal ultrasound-evidence of cholecystectomy otherwise unremarkable Assessment: -This this is a patient with chronic abdominal pain for many years for diagnoses of chronic pancreatitis somewhere around 2004 also follows the gastroenterologists in the [place] area with symptoms now presents for "3 months. Off-and-on. She's had prior ERCP and EGDs and also cholecystectomy. -Asthma currently stable -History of multiple DVTs -Coronary artery disease patient describes prior 8 MRIs -History of lupus keratoderma chronic autoimmune hepatitis and pancreatitis- hiatal hernia -Factor XII deficiency -Raynaud's depleted --scoliosis Plan: -Magaly Hurd is requested her outside medical records. Admitted with clear liquids. Other medications to continue.
[2020-01-19] MEDS: PROCHLORPERAZINE 10 MG TAB PO PRN (17:59)
[2020-01-19] MEDS: PANTOPRAZOLE 40 MG TABLET PO SCH (20:37)
[2020-01-19] MEDS ORDERED: SENNOSIDES 8.6 MG TAB PO SCH (21:00)
[2020-01-20] MEDS: PROCHLORPERAZINE 10 MG TAB PO PRN (00:14)
[2020-01-20] MEDS: ONDANSETRON 4 MG/2 ML VIAL IVP PRN ×2 (04:53→11:08)
[2020-01-20] MEDS: SODIUM CHLORIDE 0.9% 1,000 ML IV SCH ×2 (04:54→14:57)
[2020-01-20] MEDS: PROMETHAZINE INJ 6.25 MG in SODIUM CHLORIDE 0.9% 50 ML IVPB PRN (05:12)
[2020-01-20 06:41] LABS: HCT 35.7 % (34.0-46.0); HGB 12.2 gm/dL (11.4-16.0); MCH 31.8 pg (25.0-35.0); MCHC 34.2 g/dL (31.0-37.0); Mean Platelet Volume 7.9; Platelet Count 232 k/uL (150-450); RBC 3.83 m/uL (3.80-5.40); WBC 12.4 k/uL (3.8-10.6)
[2020-01-20 06:55] LABS: ALT 50 U/L (4-34); AST 31 U/L (14-36); African American GFR (CKD) >90 (>60 ml/min/1.73 sqM); Alkaline Phosphatase 53 U/L (38-126); Anion Gap 6 mmol/L; Blood Urea Nitrogen 8 mg/dL (7-17); Calcium 7.8 mg/dL (8.4-10.2); Carbon Dioxide 27 mmol/L (22-30); Chloride 102 mmol/L (98-107); Glucose 74 mg/dL (74-99); Non-African American GFR(CKD) >90 (>60 ml/min/1.73 sqM); Potassium 2.9 mmol/L (3.5-5.1); Sodium 135 mmol/L (137-145); Total Bilirubin 0.5 mg/dL (0.2-1.3); Total Protein 5.4 g/dL (6.3-8.2)
[2020-01-20] MEDS: SYMBICORT 80-4.5 MCG INHALER INHALATION SCH (08:10)
[2020-01-20] MEDS: IPRATROPIUM 0.5 MG/2.5 ML NEBU INHALATION SCH ×2 (08:10→12:05)
[2020-01-20] MEDS: POTASSIUM CHLORIDE ER 20 MEQ TAB.ER PO STA ×2 (09:25→09:42)
[2020-01-20] MEDS: LIPASE PO SCH ×2 (09:39→14:20)
[2020-01-20] MEDS: guaiFENesin SYRUP 100MG/5ML 200 MG/10 ML CUP PO SCH (09:39)
[2020-01-20] MEDS: PROTEASE PO SCH ×2 (09:39→14:20)
[2020-01-20] MEDS: ASPIRIN 81 MG PO SCH (09:39)
[2020-01-20] MEDS: AMYLASE PO SCH ×2 (09:39→14:20)
[2020-01-20] MEDS: LORATADINE 10 MG TAB PO SCH (09:59)
[2020-01-20] MEDS ORDERED: POTASSIUM CHLORIDE ER 20 MEQ TAB.ER PO ONE ×2 (10:45→12:15)
[2020-01-20] MEDS ORDERED: POTASSIUM CHLORIDE ER 20 MEQ TAB.ER PO STA (11:00)
[2020-01-20] MEDS ORDERED: POTASSIUM CHLORIDE 20 MEQ in WATER FOR INJECTION 1 100ML.BAG IVPB SCH ×2 (11:00→15:00)
[2020-01-20] MEDS: MELOXICAM 7.5 MG TAB PO SCH (11:15)
[2020-01-20] MEDS ORDERED: POTASSIUM CHLORIDE 40 MEQ in WATER FOR INJECTION 1 100ML.BAG IVPB ONE (12:00)
[2020-01-20 13:03] VITALS: BP 160/84; PULSE 62; RESP 20; TEMP 99.2
--- NOTE | 2020-01-20 14:05 | P.PCN ---
Date of Procedure: 01/20/20 (Brief history:) Procedure(s) Performed: Brief history: Patient is a pleasant 54-year-old white female, admitted hospital with abdominal discomfort, nausea vomiting, dysphagia diarrhea on and off for the last few weeks duration. She was treated empirically with antibiotics for possible infectious colitis with no help. She is hence scheduled for an elective upper endoscopy as well as colonoscopy Procedure performed: Esophagogastroduodenoscopy with biopsy Colonoscopy with random biopsies Preoperative diagnosis: Dysphagia/GERD Chronic diarrhea of 2 weeks duration Anesthesia: MAC Procedure: After informed consent was obtained from the patient was brought into the endoscopy unit and IV sedation was administered by anesthesia under continuous monitoring. Initially upper endoscopy was done. The Olympus GF 160 video endoscope was inserted inserted into the mouth and esophagus intubated without any difficulty and was gradually advanced into the stomach and duodenum and carefully examined. The bulb and second part of the duodenum appeared normal. Biopsies were done from the duodenum to rule out celiac disease The scope was then withdrawn into the stomach adequately insufflated with air and upon careful examination the antrum had mild gastritis and biopsies were done from this ar ea. The body, cardia and fundus appeared normal. The scope was then withdrawn into the esophagus. The GE junction was located at 40 cm to the incisors. It appeared regular with no erythema erosions or ulcerations. Rest of the esophagus appeared normal. Biopsies were done from the distal esophagus. Patient tolerated the procedure well. At this time the patient continued to remain sedation. Initial digital rectal examination was normal. Olympus CF 160 video colonoscope was then inserted into the rectum and gradually advanced to the cecum without any difficulty. Careful examination was performed as the scope was gradually being withdrawn. Attempts at intubating the terminal ileum wasn't successful. The prep was fair.. The cecum, ascending colon, transverse colon, descending colon, sigmoid colon and rectum appeared normal. Random biopsies were done from ascending and descending colon to rule out microscopic/collagenous Retroflexion was performed in the rectum and no lesions were noted. Patient tolerated the procedure well. Impression: 1. Upper endoscopy revealed mild antral gastritis but no evidence of esophagitis or esophageal stricture 2. Colonoscopy was within normal limits with no evidence of colitis or colorectal Recommendations: Findings of this examination were discussed with the patient as well as of family. She was advised to follow with the biopsy results. In the meantime she will continue on Protonix 40 mg daily and diet will be advanced as tolerated
[2020-01-20 14:27] LABS: African American GFR (CKD) >90 (>60 ml/min/1.73 sqM); Anion Gap 11 mmol/L; Blood Urea Nitrogen 9 mg/dL (7-17); Calcium 8.3 mg/dL (8.4-10.2); Carbon Dioxide 21 mmol/L (22-30); Chloride 103 mmol/L (98-107); Glucose 71 mg/dL (74-99); Non-African American GFR(CKD) >90 (>60 ml/min/1.73 sqM); Potassium 3.4 mmol/L (3.5-5.1); Sodium 135 mmol/L (137-145)
--- NOTE | 2020-01-20 22:36 | P.DS ---
Providers Date of admission: 01/16/20 20:04 Expected date of discharge: 01/20/20 Attending physician: Anthony Gann Consults: 01/16/20 20:16 Consult Physician Urgent Consulting Provider: Juwan Ramirez Consult Reason/Comments: chest pain Do you want consulting provider notified?: Yes 01/16/20 22:28 Consult Physician Urgent Consulting Provider: Jeana Hurd Consult Reason/Comments: Abdominal Pain Do you want consulting provider notified?: Yes, Notify in am 01/17/20 12:49 Consult Physician Routine Consulting Provider: Ju Sykes Consult Reason/Comments: autoimune dz flare up Do you want consulting provider notified?: Yes Primary care physician: Chaimjeffery Johnson [facility] Course: Chief Complaint: Abdominal pain History of presenting complaint: This is a pleasant 54-year-old patient of Dr. Eva Johnson. We'll extensive medical history. Patient follows with Dr. Hanson as her spectrographer. Patient has diagnoses of autoimmune disorders that includes lupus, scleroderma, chronic autoimmune hepatitis and pancreatitis. Patient's is October of this year started having nausea vomiting diarrhea and increasing abdominal pain. She was afraid to come in the hospital because of the colon with 19%. She did see her spectrographer and was given a dose of steroid. Did feel a bit better. And his symptoms again recurred. Continue to have nausea vomiting some diarrhea abdominal pain. Patient has been on a restricted diet. She also had a flareup of her asthma. With ALLERGIES. Again for the same reason decided not to come the hospital. Now for last 2 weeks symptoms got much worse all of the above and she decided to come in. His been no fever no chills. No respiratory symptoms currently. Admitted with-acute and chronic pancreatitis, gastritis. Patient's symptoms were fluctuating. Often times reported by the nurse the patient comfortable. Also OF bypass.. Discussed with Dr. Magaly Hurd. Patient's history is not really c ompatible to presentation. Today-discussed with the patient. She'll follow-up with Dr. Beard later today. Then she'll follow-up from there. Did have some chest pain earlier. EKG was unremarkable. Her symptoms began rather up and down. She appears very highly high strung. Should follow with the family doctor. Discussed at length. Patient's had no fever. Discussion and discharge planning more than 35 minutes Consultation: Dr. Magaly Hurd from GI Dr. Park from cardiology Physical examination: VITAL SIGNS: 99, 55, 60, 160 9079, 98% room air GENERAL: Laying in bed, anxious EYES: Pupils equal. Conjunctiva normal. HEENT: External appearance of nose and ears normal, oral cavity grossly normal. NECK: JVD not raised; masses not palpable. HEART: First and second heart sounds are normal; no edema. LUNGS: Respiratory rate normal; clear to auscultation. ABDOMEN: Soft, questionable abdominal tenderness, no guarding or rigidity, liver spleen not palpable, no masses palpable. PSYCH: [Alert and oriented x3; mood and affect anxious INVESTIGATIONS, reviewed in the clinical context: Potassium 3.4 Previous testing White count 21 bun 6 hemoglobin 40.5 platelets 351 potassium 5.3 bun 17 creatinine 0.55 AST 51 ALT 42 troponin negative TSH 1.8 amylase 64 lipase 150 COVID -19 PCR-not detected EKG tracing personally reviewed by me-normal sinus rhythm Chest x-ray film personally reviewed by me-lung merritt clear Computed tomography scan of the abdomen some fluid-filled loops of ileum in the right lower quadrant Abdominal ultrasound-evidence of cholecystectomy otherwise unremarkable Assessment: -This this is a patient with chronic abdominal pain for many years for diagnoses of chronic pancreatitis somewhere around 2004 also follows the gastroenterologists in the [place] area with symptoms now presents for "3 months. Off-and-on. She's had prior ERCP and EGDs and also cholecystectomy. -Some element of psychosomatic symptoms -Asthma currently stable -History of multiple DVTs -Coronary artery disease patient describes prior 8 MRIs -History of lupus keratoderma chronic autoimmune hepatitis and pancreatitis- hiatal hernia -Factor XII deficiency -Raynaud's depleted --scoliosis Disposition: Home. Patient Condition at Discharge: Stable Plan - Discharge Summary Discharge Rx Participant: No New Discharge Prescriptions: New Aspirin 81 mg PO DAILY chew Prochlorperazine [Compazine] 10 mg PO Q6HR PRN #10 tab PRN Reason: Nausea And Vomiting Continue Celecoxib [CeleBREX] 200 mg PO BID Esomeprazole Magnesium [NexIUM] 40 mg PO HS Loratadine [Claritin] 10 mg PO DAILY Lipase/Protease/Amylase [Lisa James] 42,000 unit PO QID guaiFENesin 400 mg PO DAILY Tiotropium [place] [Spiriva Respimat] 1 puff INHALATION RT-BID Fluticasone/Salmeterol [Advair 250-50 Diskus] 2 puff INHALATION RT-BID Polyethylene Glycol 3350 [Miralax] 17 gm PO BID PRN PRN Reason: Constipation Albuterol Sulfate [Proair Hfa] 2 puff INHALATION RT-Q4H PRN PRN Reason: Shortness Of Breath Tapentadol HCl [Nucynta] 100 mg PO ONCE PRN PRN Reason: Pain Discontinued Ondansetron [Zofran] 4 mg PO DAILY PRN PRN Reason: Nausea Discharge Medication List Celecoxib [CeleBREX] 200 mg PO BID 08/24/15 [History] Esomeprazole Magnesium [NexIUM] 40 mg PO HS 08/24/15 [History] Lipase/Protease/Amylase [Pancreaze Dr] 42,000 unit PO QID 08/24/15 [History] Loratadine [Claritin] 10 mg PO DAILY 08/24/15 [History] guaiFENesin 400 mg PO DAILY 04/12/18 [History] Albuterol Sulfate [Proair Hfa] 2 puff INHALATION RT-Q4H PRN 01/16/20 [History] Fluticasone/Salmeterol [Advair 250-50 Diskus] 2 puff INHALATION RT-BID 01/16/20 [History] Polyethylene Glycol 3350 [Miralax] 17 gm PO BID PRN 01/16/20 [History] Tiotropium [place] [Spiriva Respimat] 1 puff INHALATION RT-BID 01/16/20 [History] Tapentadol HCl [Nucynta] 100 mg PO ONCE PRN 01/19/20 [History] Aspirin 81 mg PO DAILY chew 01/20/20 [Rx] Prochlorperazine [Compazine] 10 mg PO Q6HR PRN #10 tab 01/20/20 [Rx] Follow up Appointment(s)/Referral(s): Chaim Johnson DO [Primary Care Provider] - 1-2 days Katiana Killian MD [REFERRING] - 01/20/20 Activity/Diet/Wound Care/Special Instructions: CONTINUE DIET TOLERATED. USE MEDICATION NEEDED FOR PAIN AND NAUSEA. CALL AND SCHEDULE FOLLOW UP APPOINTMENTS.CALL PHYSICIAN OR RETURN TO ER WITH ANY QUESTIONS COMMENTS CONCERNS WORSENING RETURNING SYMPTOMS FEVER 101.1 OR HIGHER, COUGH, MUSCLE ACHES, SHORTNESS OF BREATH, WORSENING RETURNING SYMPTOMS THAT BROUGHT YOU TO THE ER. . Discharge Disposition: HOME SELF-CARE
== END 2020-01-20 16:21 | disposition home or self-care (01) | DRG 439 ==
LOC: EC 16:31 → 3SCARD 20:04 → 6PED 01-19 19:56
PROVIDERS: ADMIT Hospitalist; ATTEND Hospitalist
DX: K85.80 Other acute pancreatitis without necrosis or infection (principal); D68.2 Hereditary deficiency of other clotting factors; K86.1 Other chronic pancreatitis; M34.9 Systemic sclerosis, unspecified; K75.4 Autoimmune hepatitis; J44.9 Chronic obstructive pulmonary disease, unspecified; M06.9 Rheumatoid arthritis, unspecified; Z20.828 Contact with and (suspected) exposure to other viral communicable diseases; F32.9 Major depressive disorder, single episode, unspecified; F41.9 Anxiety disorder, unspecified; G89.4 Chronic pain syndrome; I25.10 Atherosclerotic heart disease of native coronary artery without angina pectoris; I25.2 Old myocardial infarction; I73.00 Raynaud's syndrome without gangrene; K21.9 Gastro-esophageal reflux disease without esophagitis; K29.70 Gastritis, unspecified, without bleeding; K59.09 Other constipation; M41.9 Scoliosis, unspecified; Q82.8 Other specified congenital malformations of skin; K44.9 Diaphragmatic hernia without obstruction or gangrene; M19.90 Unspecified osteoarthritis, unspecified site; R00.1 Bradycardia, unspecified; R01.1 Cardiac murmur, unspecified; R07.89 Other chest pain; K57.90 Diverticulosis of intestine, part unspecified, without perforation or abscess without bleeding; Z79.1 Long term (current) use of non-steroidal anti-inflammatories (NSAID); Z79.82 Long term (current) use of aspirin; Z79.52 Long term (current) use of systemic steroids; Z79.899 Other long term (current) drug therapy; Z96.651 Presence of right artificial knee joint; Z86.718 Personal history of other venous thrombosis and embolism; Z90.710 Acquired absence of both cervix and uterus; Z90.49 Acquired absence of other specified parts of digestive tract; Z91.040 Latex allergy status; Z88.0 Allergy status to penicillin; Z88.2 Allergy status to sulfonamides; Z88.8 Allergy status to other drugs, medicaments and biological substances; Z91.048 Other nonmedicinal substance allergy status; Z82.49 Family history of ischemic heart disease and other diseases of the circulatory system; Z83.3 Family history of diabetes mellitus; Z84.1 Family history of disorders of kidney and ureter
CPT/HCPCS: 36415; 71046; 74177; 76700; 80048; 80053; 80061; 81003; 82150; 83690; 83735; 84443; 84484; 85025; 85027; 85379; 85610; 85730; 93005; 93306; 94640; 96361; 96374; 96375; 99285